=== PATIENT | male | born 1975 | race Caucasian/White ===

== ENCOUNTER 2018-01-28 12:32 | Observation (INO) ==
[2018-01-28] MEDS ORDERED: Sod Chloride 0.9% Inj 1,000 ML IV.SIG ONE (13:36)
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
[2018-01-28 14:23] LABS: Baso # (Auto) 0.1 th/mm3 (0.0-0.2); Baso % (Auto) 1.3 % (0.0-2.0); Eos % (Auto) 0.5 % (0.0-4.0); Hematocrit 45.7 % (39.0-51.0); Hemoglobin 15.8 gm/dL (13.0-17.0); Lymph # (Auto) 1.7 th/mm3 (1.0-4.8); Lymph % (Auto) 23.3 % (9.0-44.0); Mean Corpuscular HGB Conc 34.5 % (32.0-36.0); Mean Corpuscular Hemoglobin 32.5 pg (27.0-34.0); Mean Corpuscular Volume 94.3 fL (80.0-100.0); Mean Platelet Volume 9.8 fL (7.0-11.0); Mono # (Auto) 1.1 th/mm3 (0.0-0.9); Mono % (Auto) 14.8 % (0.0-8.0); Neut # (Auto) 4.6 th/mm3 (1.8-7.7); Neut % (Auto) 60.1 % (16.0-70.0); Platelet Count 339 th/mm3 (150-450); Red Blood Count 4.85 mil/mm3 (4.50-5.90); Red Cell Distribution Width 13.4 % (11.6-17.2); White Blood Count 7.5 th/mm3 (4.0-11.0)
[2018-01-28 14:37] LABS: Chloride 105 meq/L (98-107); Sodium 140 meq/L (136-145)
[2018-01-28 14:41] LABS: Anion Gap 10 meq/L (5-15); Calcium 8.8 mg/dL (8.5-10.1); Carbon Dioxide 25.4 meq/L (21.0-32.0)
[2018-01-28 14:42] LABS: Blood Urea Nitrogen 14 mg/dL (7-18); Glucose,Random 80 mg/dL (74-106)
[2018-01-28 14:45] LABS: Glomerular Filtration Rate Greater Than 89 mL/min (>89)
[2018-01-28 14:49] LABS: Troponin I 0.26 ng/mL (0.02-0.05)
[2018-01-28] MEDS ORDERED: Heparin Drip 25,000 UNIT/250 ML BAG IV.CONT PRN (15:04)
[2018-01-28] MEDS ORDERED: Heparin 10,000 UNITS/10 ML Vial (for IV use) IV.PUSH STA (15:04)
[2018-01-28] MEDS ORDERED: Aspirin 325 MG Tablet PO SCH (15:15)
[2018-01-28] MEDS ORDERED: Morphine Inj 4 MG/ML Vial IV.PUSH PRN ×2 (15:46)
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
[2018-01-28 16:06] LABS: Activated Partial Thrombo Time 23.1 sec (24.3-30.1); Prothrombin Time 10.2 sec (9.8-11.6)
[2018-01-28] MEDS: Sod Chloride 0.9% Inj 1,000 ML IV.CONT SCH (17:00)
[2018-01-28 17:40] LABS: Troponin I 0.19 ng/mL (0.02-0.05)
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
[2018-01-28] MEDS: Metoprolol Tartrate 25 MG Tablet PO SCH (20:47)
[2018-01-28] MEDS ORDERED: Heparin - SQ 10,000 UNITS/ML Vial SQ SCH (21:00)
[2018-01-28 22:14] LABS: Alanine Aminotransferase 22 U/L (12-78); Albumin 3.1 g/dL (3.4-5.0); Anion Gap 7 meq/L (5-15); Aspartate Aminotransferase 20 U/L (15-37); Blood Urea Nitrogen 13 mg/dL (7-18); Calcium 8.2 mg/dL (8.5-10.1); Carbon Dioxide 25.7 meq/L (21.0-32.0); Chloride 109 meq/L (98-107); Glomerular Filtration Rate Greater Than 89 mL/min (>89); Glucose,Random 106 mg/dL (74-106); Potassium 3.2 meq/L (3.5-5.1); Sodium 142 meq/L (136-145)
[2018-01-28 22:18] LABS: Alkaline Phosphatase 68 U/L (45-117); Chol/HDL Ratio 2.94 Ratio; Cholesterol 146 mg/dL (120-200); Creatine Kinase 113 U/L (39-308); HDL Cholesterol 49.6 mg/dL (40.0-60.0); LDL Cholesterol,Calculated 72 mg/dL (0-99); Total Protein 6.4 g/dL (6.4-8.2); Triglycerides 122 mg/dL (42-150); Troponin I 0.08 ng/mL (0.02-0.05)
[2018-01-28] MEDS: Heparin 10,000 UNITS/10 ML Vial (for IV use) IV.PUSH PRN (23:00)
[2018-01-29] MEDS: Sod Chloride 0.9% Inj 1,000 ML IV.CONT SCH (04:36)
[2018-01-29] MEDS: Heparin 10,000 UNITS/10 ML Vial (for IV use) IV.PUSH PRN (05:16)
[2018-01-29 06:06] LABS: Baso % (Auto) 0.2 % (0.0-2.0); Eos # (Auto) 0.3 th/mm3 (0.0-0.4); Eos % (Auto) 5.2 % (0.0-4.0); Hematocrit 38.2 % (39.0-51.0); Hemoglobin 13.2 gm/dL (13.0-17.0); Lymph # (Auto) 2.4 th/mm3 (1.0-4.8); Lymph % (Auto) 39.3 % (9.0-44.0); Mean Corpuscular HGB Conc 34.6 % (32.0-36.0); Mean Corpuscular Hemoglobin 32.8 pg (27.0-34.0); Mean Corpuscular Volume 94.8 fL (80.0-100.0); Mean Platelet Volume 9.4 fL (7.0-11.0); Mono # (Auto) 1.3 th/mm3 (0.0-0.9); Mono % (Auto) 20.7 % (0.0-8.0); Neut # (Auto) 2.1 th/mm3 (1.8-7.7); Neut % (Auto) 34.6 % (16.0-70.0); Platelet Count 256 th/mm3 (150-450); Red Blood Count 4.03 mil/mm3 (4.50-5.90); Red Cell Distribution Width 13.5 % (11.6-17.2); White Blood Count 6.1 th/mm3 (4.0-11.0)
--- NOTE | 2018-01-29 08:42 | P.PN ---
Subjective Interval history: Pt feels well other than ntg headache, no cp Physical Exam Vital signs: Vital Signs 01/28/18 12:46 01/28/18 14:45 01/28/18 18:44 Temperature 98.3 F 98.2 F Pulse Rate 74 70 64 Respiratory Rate 16 15 18 Blood Pressure 134/76 135/75 135/78 Pulse Oximetry 99 96 98 01/28/18 20:00 01/28/18 22:00 01/28/18 23:00 Temperature 97.9 F Pulse Rate 71 67 62 Respiratory Rate 18 Blood Pressure 115/77 Pulse Oximetry 97 01/29/18 00:00 01/29/18 01:00 01/29/18 02:00 Temperature 98.2 F Pulse Rate 60 61 57 L Respiratory Rate 18 Blood Pressure 103/57 L Pulse Oximetry 96 01/29/18 03:00 01/29/18 04:00 01/29/18 05:00 Temperature 98 F Pulse Rate 62 54 L 55 L Respiratory Rate 18 Blood Pressure 93/52 L Pulse Oximetry 97 01/29/18 05:56 Temperature Pulse Rate 49 L Respiratory Rate Blood Pressure Pulse Oximetry Intake & Output 01/28/18 01/29/18 01/29/18 18:59 06:59 18:59 Intake Total 1000 / 1000 1480 / 1480 Output Total 500 / 500 Balance 1000 / 1000 980 / 980 Weight 110.8 kg 87 kg Intake: IV 1000 / 1000 1000 / 1000 NS Inj 1,000 ML @ 75 mls/hr IV. 1000 / 1000 CONT .[id number] BENNETT Rx#: [id number] NS Inj 1,000 ML @ Wide Open IV. 1000 / 1000 SIG BOLUS ONE Rx#:[id number] Oral 480 / 480 Output: Urine 500 / 500 Other: # Bowel Movements 0 - Constitutional no acute distress - Routine HEENT Exam Head: Present: normocephalic Eye: Present: EOMI ENT: Present: mucous membranes moist - Routine Neck Exam Present: supple. Absent: JVD - Routine Respiratory Exam Present: CTA bilaterally. Absent: accessory muscle use - Routine Cardiovascular Exam Present: RRR. Absent: murmur - Routine Abdominal Exam Present: soft - Routine Extremities Exam Absent: edema Results - Labs CBC & Chem 7: 01/29/18 04:35 01/28/18 21:45 Laboratory Results - last 24 hr 01/28/18 01/28/1801/28/18 14:00 14:00 15:16 CBC w Diff Auto diff final WBC 7.5 RBC 4.85 Hgb 15.8 Hct 45.7 MCV 94.3 MCH 32.5 MCHC 34.5 RDW 13.4 Plt Count 339 MPV 9.8 Neut % (Auto) 60.1 Lymph % (Auto) 23.3 [place] % (Auto) 14.8 H Eos % (Auto) 0.5 Baso % (Auto) 1.3 Neut # (Auto) 4.6 Lymph # (Auto) 1.7 [place] # (Auto) 1.1 H Eos # (Auto) 0.0 Baso # (Auto) 0.1 WBC Differential . Differential Comment . PT 10.2 INR 1.0 APTT 23.1 L Sodium 140 Potassium 4.0 Chloride 105 Carbon Dioxide 25.4 Anion Gap 10 BUN 14 Creatinine 0.83 Estimated GFR Greater than 89 Random Glucose 80 Calcium 8.8 Total Bilirubin AST ALT Alkaline Phosphatase Total Creatine Kinase Troponin I 0.26 H Total Protein Albumin Triglycerides Cholesterol LDL Cholesterol, Calc HDL Cholesterol Cholesterol/HDL Ratio 01/28/18 01/28/18 01/28/18 17:03 21:45 21:45 CBC w Diff WBC RBC Hgb Hct MCV MCH MCHC RDW Plt Count MPV Neut % (Auto) Lymph % (Auto) [place] % (Auto) Eos % (Auto) Baso % (Auto) Neut # (Auto) Lymph # (Auto) [place] # (Auto) Eos # (Auto) Baso # (Auto) WBC Differential Differential Comment PT INR APTT 31.7 H D Sodium 142 Potassium 3.2 L D Chloride 109 H Carbon Dioxide 25.7 Anion Gap 7 BUN 13 Creatinine 0.78 Estimated GFR Greater than 89 Random Glucose 106 Calcium 8.2 L Total Bilirubin 0.3 AST 20 ALT 22 Alkaline Phosphatase 68 Total Creatine Kinase 125 113 Troponin I 0.19 H 0.08 H Total Protein 6.4 Albumin 3.1 L Triglycerides 122 Cholesterol 146 LDL Cholesterol, Calc 72 HDL Cholesterol 49.6 Cholesterol/HDL Ratio 2.94 01/29/18 01/29/18 01/29/18 04:35 04:35 04:35 CBC w Diff WBC 6.1 RBC 4.03 L Hgb 13.2 D Hct 38.2 L MCV 94.8 MCH 32.8 MCHC 34.6 RDW 13.5 Plt Count 256 MPV 9.4 Neut % (Auto) 34.6 Lymph % (Auto) 39.3 [place] % (Auto) 20.7 H Eos % (Auto) 5.2 H Baso % (Auto) 0.2 Neut # (Auto) 2.1 Lymph # (Auto) 2.4 [place] # (Auto) 1.3 H Eos # (Auto) 0.3 Baso # (Auto) 0.0 WBC Differential . Differential Comment Auto diff final PT INR APTT 37.4 H Sodium Potassium Chloride Carbon Dioxide Anion Gap BUN Creatinine Estimated GFR Random Glucose Calcium Total Bilirubin AST ALT Alkaline Phosphatase Total Creatine Kinase Troponin I 0.04 Total Protein Albumin Triglycerides Cholesterol LDL Cholesterol, Calc HDL Cholesterol Cholesterol/HDL Ratio Assessment and Plan - Assessment (1) Elevated troponin Code(s): R74.8 - Status: Acute - Plan At this point I doubt ACS/nstemi, think more likely related to acute severe HTN and/or possible arrhythmia ?SVT; pt feels well now, trops downtrending. No convincing chest pain at any point. Will plan for a nuc stress, if normal he can d/c home to f/u with me in the office.
[2018-01-29] MEDS: Metoprolol Tartrate 25 MG Tablet PO SCH (11:31)
[2018-01-29 12:32] VITALS: TEMP 98
[2018-01-29] MEDS ORDERED: Regadenoson Inj 0.4 MG/5 ML Syringe IV.PUSH ONE (13:33)
--- NOTE | 2018-01-29 15:35 | NM ---
EXAM DATE: 01/29/2018 12:49 PM EDT AGE/SEX: 42 years / Male INDICATIONS:Angina. . Chest pain. CLINICAL DATA: This is the patient's initial encounter. Patient reports that signs and symptoms have been present for 1 day and indicates a pain score of 2/10. MEDICAL/SURGICAL HISTORY: Hypertension. Splenectomy. COMPARISON: No prior exams available for comparison. DOSE: 8.3 mCi Tc 99m Myoview at rest 26.8 mCi [id number] at stress 0.4 mg Lexiscan STRESS SYMPTOMS: Head pressure. EJECTION FRACTION: 64 % TECHNIQUE: The patient underwent pharmacologic stress with infusion of prescribed dose. Continuous ECG tracing was monitored during stress. Gated SPECT imaging was performed after stress and conventi onal SPECT imaging was performed at rest. The examination was performed on a SPECT/CT scanner, both attenuation and non-corrected datasets were reviewed. FINDINGS: Distribution: The maximum perfused segment at stress is in the septal wall. Perfusion Study: The pattern of perfusion at stress is within normal limits. Gated Study: There are intact wall motion and wall thickening without hypokinetic or dyskinetic segm ents. The ejection fraction is calculated at 64%. RISK CATEGORY: Low (<1% Annual Motality Rate) CONCLUSION: Unremarkable myocardial perfusion. Electronically signed by: Edward Magaña MD 01/29/2018 3:33 PM EDT
[2018-01-29] MEDS ORDERED: Aspirin 325 MG Tablet PO SCH (15:46)
--- NOTE | 2018-01-29 16:16 | ECG ---
Date Performed: 01/28/2018 Time Performed: 13:41:37 PTAGE: 42 years EKG: Sinus rhythm POSSIBLE RIGHT VENTRICULAR CONDUCTION DELAY BORDERLINE ECG INTERPRETATION BASED ON A DEFAULT AGE OF 41 YEARS NO PREVIOUS TRACING DOCTOR: Allison Aguillon Interpretating Date/Time 01/29/2018 16:14:27
--- NOTE | 2018-01-29 16:17 | ECG ---
Date Performed: 01/28/2018 Time Performed: 21:16:20 PTAGE: 42 years EKG: Sinus rhythm Normal ECG PREVIOUS TRACING : 01/28/2018 13.41 Since the previous tracing, no significant change noted DOCTOR: Allison Aguillon Interpretating Date/Time 01/29/2018 16:14:35
--- NOTE | 2018-01-29 17:55 | P.DS ---
Date of admission: 01/28/18 15:49 Primary care physician: No Primary Care Physician Brief History from admission: 42-year-old male with no chronic medical illnesses who is usually in rather good physical condition. Patient works outside all the time and exercises almost every day. Patient was out riding his bike today and [place] and when he was up there he started feeling his heart racing where he could not catch his breath. Started feeling a tightness in his chest with nausea. After about 30 minutes he walked over to the [facility] stand and they put him on oxygen with resolution of his discomfort. [facility] did call his who came and picked him up and brought him to the hospital for evaluation. By the time the patient came to the hospital he still has some nausea, shortness of breath. However he was not experiencing any further chest tightness or shortness of breath. Patient had episode of nausea was given Zofran without any relief and then given Compazine and Benadryl with relief. Workup did indicate elevated troponin. Thus ER physician contacted single needle tufting machine operator for recommendations. Patient will be admitted for non-ST elevated myocardial infarction with cardiac consultation. DS: Medications - Discharge Medications Prescriptions: propranolol 20 mg PO BID PRN #30 tab PRN Reason: heart palpitations DS: Summary Hospital Course: 42-year-old male who was transferred from [place] with workup that was suspicious fo a non-STEMI, cardiology determined that he should undergo a cardiac stress test which he passed without any evidence of defects this afternoon. By history he denies chest pain and states that it was more of a heart palpitation that was persistent beyond 2 hours and causing some shortness of breath. The onset was related to bike riding and then the passes occurred relating to exertion normal activities at work or during exercise. This history is consistent with SVT, he has the episodic type and may benefit from some parental all to use as needed when these episodes occur. I am providing him a prescription for propranolol and he has a follow-up with his single needle tufting machine operator in the next 2 weeks. He is stable for discharge today. - Time Spent with Patient Total time spent providing and/or coordinating discharge services: Less than 30 minutes - Quality: VTE Deep Vein Thrombosis/Pulmonary Embolism Present on Admission: No Exam Vital signs: Vital Signs 01/28/18 18:44 01/28/18 20:00 01/28/18 22:00 Temperature 98.2 F 97.9 F Pulse Rate 64 71 67 Respiratory Rate 18 18 Blood Pressure 135/78 115/77 Pulse Oximetry 98 97 01/28/18 23:00 01/29/18 00:00 01/29/18 01:00 Temperature 98.2 F Pulse Rate 62 60 61 Respiratory Rate 18 Blood Pressure 103/57 L Pulse Oximetry 96 01/29/18 02:00 01/29/18 03:00 01/29/18 04:00 Temperature 98 F Pulse Rate 57 L 62 54 L Respiratory Rate 18 Blood Pressure 93/52 L Pulse Oximetry 97 01/29/18 05:00 01/29/18 05:56 01/29/18 07:00 Temperature Pulse Rate 55 L 49 L 54 L Respiratory Rate Blood Pressure Pulse Oximetry 01/29/18 08:00 01/29/18 12:00 Temperature 98.2 F 98.0 F Pulse Rate 63 60 Respiratory Rate 18 16 Blood Pressure 106/59 L 102/49 L Pulse Oximetry 97 97 Intake & Output 01/28/18 01/29/18 01/29/18 18:59 06:59 18:59 Intake Total 1000 / 1000 1480 / 1480 Output Total 500 / 500 Balance 1000 / 1000 980 / 980 Weight 110.8 kg 87 kg Intake: IV 1000 / 1000 1000 / 1000 NS Inj 1,000 ML @ 75 mls/hr IV. 1000 / 1000 CONT .[id number] BENNETT Rx#: [id number] NS Inj 1,000 ML @ Wide Open IV. 1000 / 1000 SIG BOLUS ONE Rx#:[id number] Oral 480 / 480 Output: Urine 500 / 500 Other: # Bowel Movements 0 Results Procedures completed during hospitalization: none Labs on day of discharge: Labs from last 24 hours 01/29/18 01/29/18 01/29/18 16:33 10:04 04:35 WBC RBC Hgb Hct MCV MCH MCHC RDW Plt Count MPV Neut % (Auto) Lymph % (Auto) [place] % (Auto) Eos % (Auto) Baso % (Auto) Neut # (Auto) Lymph # (Auto) [place] # (Auto) Eos # (Auto) Baso # (Auto) WBC Differential Differential Comment APTT 32.3 H 36.3 H 37.4 H Sodium Potassium Chloride Carbon Dioxide Anion Gap BUN Creatinine Estimated GFR Random Glucose Calcium Total Bilirubin AST ALT Alkaline Phosphatase Total Creatine Kinase Troponin I Total Protein Albumin Triglycerides Cholesterol LDL Cholesterol, Calc HDL Cholesterol Cholesterol/HDL Ratio 01/29/18 01/29/18 01/28/18 04:35 04:35 21:45 WBC 6.1 RBC 4.03 L Hgb 13.2 D Hct 38.2 L MCV 94.8 MCH 32.8 MCHC 34.6 RDW 13.5 Plt Count 256 MPV 9.4 Neut % (Auto) 34.6 Lymph % (Auto) 39.3 [place] % (Auto) 20.7 H Eos % (Auto) 5.2 H Baso % (Auto) 0.2 Neut # (Auto) 2.1 Lymph # (Auto) 2.4 [place] # (Auto) 1.3 H Eos # (Auto) 0.3 Baso # (Auto) 0.0 WBC Differential . Differential Comment Auto diff final APTT Sodium 142 Potassium 3.2 L D Chloride 109 H Carbon Dioxide 25.7 Anion Gap 7 BUN 13 Creatinine 0.78 Estimated GFR Greater than 89 Random Glucose 106 Calcium 8.2 L Total Bilirubin 0.3 AST 20 ALT 22 Alkaline Phosphatase 68 Total Creatine Kinase 113 Troponin I 0.04 0.08 H Total Protein 6.4 Albumin 3.1 L Triglycerides 122 Cholesterol 146 LDL Cholesterol, Calc 72 HDL Cholesterol 49.6 Cholesterol/HDL Ratio 2.94 01/28/18 21:45 WBC RBC Hgb Hct MCV MCH MCHC RDW Plt Count MPV Neut % (Auto) Lymph % (Auto) [place] % (Auto) Eos % (Auto) Baso % (Auto) Neut # (Auto) Lymph # (Auto) [place] # (Auto) Eos # (Auto) Baso # (Auto) WBC Differential Differential Comment APTT 31.7 H D Sodium Potassium Chloride Carbon Dioxide Anion Gap BUN Creatinine Estimated GFR Random Glucose Calcium Total Bilirubin AST ALT Alkaline Phosphatase Total Creatine Kinase Troponin I Total Protein Albumin Triglycerides Cholesterol LDL Cholesterol, Calc HDL Cholesterol Cholesterol/HDL Ratio - Impressions ITS Impressions Myocardial Perfusion Scan Nuc Med 01/29/18 00:00 CONCLUSION: Unremarkable myocardial perfusion. Discharge Plan - Discharge Disposition Patient Disposition: Discharge Home - Discharge Condition Condition: Good - Discharge Order Discharge Orders: Discharge Order (Routine); Ordered 01/29/18 Ordered By: Vladimir Devi - Physicians Team Primary Care Provider: Primary Care Jesseniai,Kristal Attending Provider: Vladimir Devi Other Providers: Georgi Allison MD
[2018-01-29 18:12] VITALS: BP 138/86; RESP 18; O2SAT 100
[2018-01-29 18:14] VITALS: PULSE 78
== END 2018-01-29 17:59 | disposition home or self-care (01) ==
LOC: PHED 12:32 → PHEDA 15:49 → INTOOBSV 15:49 → PHEDA 17:31 → HCIS 17:55
PROVIDERS: ADMIT Family Medicine; ATTEND Family Medicine